=== PATIENT | male | born 1985 | race Caucasian/White ===

== ENCOUNTER 2016-05-26 22:11 | Emergency (ER) | payer MEDICAID ==
[~2016-05-26] VITALS: Ht 180.3 cm; Wt 108.9 kg
[~2016-05-26 22:11] MED LIST: MELA3TAB PO; OMEG1CAP18 PO
--- NOTE | 2016-05-26 22:50 | NUR ---
PT A/OX4 BREATHING EFFORTLESSLY ON ROOM AIR, PT STATES HE HAS BEEN HVAING LEFT SIDED TINGLING X 2 MONTHS AND STATES HE THOUGHT HE WAS HVAING A PANIC ATTACK TODAY, PT ON MD CALVIN AT BEDSIDE WILL CONTINUE TO MONITOR.
[2016-05-26] MEDS ORDERED: LORAZEPAM INJ 2 MG/ML VIAL ONE (22:56)
[2016-05-26] MEDS ORDERED: LORAZEPAM INJ 2 MG/ML VIAL IM ONE (23:00)
[2016-05-26 23:58] VITALS: BP 145/92
== END 2016-05-26 23:58 | disposition home or self-care (01) ==
LOC: ER 22:14
DX: F41.9 Anxiety disorder, unspecified (principal); F17.200 Nicotine dependence, unspecified, uncomplicated; F41.0 Panic disorder [episodic paroxysmal anxiety]
CPT/HCPCS: A4606; J2060; Z7610

== ENCOUNTER 2016-07-01 23:45 | Emergency (ER) | payer BC, MEDICAID ==
[~2016-07-01] VITALS: Ht 182.9 cm; Wt 102.1 kg
[2016-07-01 23:49] VITALS: BP 162/109
== END 2016-07-02 01:15 | disposition home or self-care (01) ==
LOC: ER 23:50
DX: R03.0 Elevated blood-pressure reading, without diagnosis of hypertension (principal); F41.9 Anxiety disorder, unspecified; F17.200 Nicotine dependence, unspecified, uncomplicated; R94.6 Abnormal results of thyroid function studies
CPT/HCPCS: A4606; Z7610